=== PATIENT | male | born 1975 | race African-American/Black ===

== ENCOUNTER 2017-05-05 05:12 | Emergency (ER) | payer OTHER ==
--- NOTE | ~2017-05-05 | CR72 ---
[facility] A Service of [facility] RADIOLOGY TEXT RESULTS PATIENT: DELMER PIERCE LOCATION: [facility] : 71 UNIT #: [id number] AGE: [address]: Omero Donnelly MD SEX: M ORDER DR: [id number] [facility] [address] [place], [place] [address] [id number] MR#: [id number] Acc #: [id number] NAME: DELMER PIERCE : 1975 SEX: M STUDY DATE/TIME: 05/05/2017 6:37 UNIT: MONSE ROOM: STUDY DESCRIPTION: CR Chest Single View Portable Attending Physician: Omero Donnelly M.D. Ordering Physician: Ernie Stone M.D. Primary Care Physician: Chip Xiong M.D. MEDICAL IMAGING REPORT This report is preliminary unless electronic signature is present EXAM Portable AP view of the chest COMPARISON STUDIES 01/11/2017, 01/14/2017. HISTORY 41-year-old male with chest pain for few days. FINDINGS Evaluation is limited by slight patient rotation to the left. There appears to be increased opacity in the left lung base, possibly related to rotation and overlapping heart shadow. There is poor inspiratory effort with crowding of the central bronchovascular structures and possible atelectasis in the medial right lung base. No evidence of pneumothorax. There is top normal heart size. IMPRESSION Poor inspiratory effort with questionable increased left basilar opacities which may be artifactually related to rotation and overlapping heart shadow. Left basilar atelectasis, pneumonia and/or pleural effusion cannot be excluded. Clinical correlation recommended. Dictated by... Niko Osborne M.D. THIS IS AN ELECTRONICALLY VERIFIED REPORT Niko Osborne M.D. at 05/13/2017 10:54 AM ONOFRE/hector TD: 05/05/2017 11:37 JOB #: [id number] [facility] A Service of [facility] RADIOLOGY TEXT RESULTS PATIENT: DELMER PIERCE LOCATION: [facility] : 71 UNIT #: [id number] AGE: [address]: Omero Donnelly MD SEX: M ORDER DR: MEDICAL IMAGING REPORT Page 1 of 1 COPY
--- NOTE | ~2017-05-05 | EKG ---
PATIENT: DELMER PIERCE UNIT #: [id number] Ventricular Rate: 76 BPM Atrial Rate: 76 BPM P-R Interval: 174 ms QRS Duration: 114 ms Q-T Interval: 426 ms QTC Calculation(Bezet): 479 ms P Cobb: 63 degrees Calculated R Cobb: 59 degrees Calculated T Cobb: 43 degrees Diagnosis Line: Normal sinus rhythm Diagnosis Line: Cannot rule out Anterior infarct (cited on or Diagnosis Line: before 30-JUL-2016) Diagnosis Line: Abnormal ECG Diagnosis Line: When compared with ECG of 30-JUL-2016 01:05, Diagnosis Line: T wave inversion more evident in Inferior leads Diagnosis Line: Nonspecific T wave abnormality now evident in Diagnosis Line: Lateral leads Diagnosis Line: Confirmed by LOGAN HENRIQUEZ MD ([id number]) on Diagnosis Line: 05/05/2017 11:10:55 AM INTERPRETING MD: ALCIDES
[~2017-05-05 05:12] MED LIST: ALLERGY10 M2 PO; BUMEX2 MG PO; CARAFATE1 GM PO; COREG PO; FLEXERIL PO; HYDRALAZINE HCL25 MG PO; HYDROXYZINE HCL25 M1 PO; IBUPROFEN600 MG PO; KCL PO; LIPITOR20 MG PO; LOPID600 MG PO; NORVASC10 MG PO; PARAFON FORTE500 M1 PO; PRILOSEC40 MG PO; SERTRALINE HCL50 MG PO; ZOFRAN PO
[2017-05-05 05:52] LABS: POC - CKMB <1.0 ng/mL (0.0-7.9); POC - TROPONIN <0.05 ng/mL (<=0.05)
[2017-05-05 06:15] LABS: EOSINOPHIL# 0.2 X10e3 (0-0.7); EOSINOPHIL% 4.3 % (0.0-7.0); HEMATOCRIT 28.3 % (38.0-50.0); HEMOGLOBIN 9.3 gm/dL (13.0-16.0); LYMPHOCYTE# 2.1 X10e3 (1.0-3.5); LYMPHOCYTE% 41.1 % (17.0-45.0); MEAN CELL VOLUME 87.9 FL (83-96); MEAN CORPUSCULAR HEMOGLOBIN 28.8 PG (28-34); MEAN CORPUSCULAR HGB CONC 32.8 g/dL (30-36); MEAN PLATELET VOLUME 7.1 FL (6.5-11.5); MONOCYTE# 0.5 X10e3 (0-1.0); MONOCYTE% 10.4 % (3.0-12.0); NEUTROPHIL# 2.3 X10e3 (1.5-7.1); NEUTROPHIL% 44.2 % (40-75); PLATELET COUNT 283 X10e3 (140-420); RED BLOOD COUNT 3.22 X10e (3.90-5.60); RED CELL DISTRIBUTION WIDTH 14.7 % (11.0-15.5); WHITE BLOOD COUNT 5.2 X10e3 (4.0-10.5)
[2017-05-05 06:18] LABS: DIFF IND NO
[2017-05-05 06:43] LABS: ALBUMIN SERUM 4.3 g/dL (3.5-5.0); BILIRUBIN, DIRECT 0.1 mg/dL (0.0-0.2); BILIRUBIN,INDIRECT 0.6 mg/dL (0.0-0.9); BILIRUBIN,TOTAL 0.7 mg/dL (0.2-2.0); CALCIUM SERUM 8.8 mg/dL (8.4-10.2); CREATININE SERUM 2.4 mg/dL (0.6-1.4); GLOM FILT RATE Estimated 36.9 mL/min (>60); MAGNESIUM 1.7 mg/dL (1.6-3.0); POTASSIUM 3.4 mmol/L (3.5-5.1); PROTEIN TOTAL SERUM 7.6 g/dL (6.0-8.3)
== END 2017-05-05 07:30 | disposition home or self-care (01) ==
LOC: CED 05:12
PROVIDERS: Emergency Medicine
DX: R07.89 Other chest pain (principal); F10.129 Alcohol abuse with intoxication, unspecified; F17.200 Nicotine dependence, unspecified, uncomplicated; Z88.8 Allergy status to other drugs, medicaments and biological substances
CPT/HCPCS: 36415; 71010; 80048; 80076; 82553; 83735; 84484; 85025; 93005; 99285; G0480